=== PATIENT | female | born 2000 | race Caucasian/White ===

== ENCOUNTER 2023-08-09 07:30 | Outpatient (RCR) | payer BC, SELFPAY | END 2023-12-07 23:59 | disposition home or self-care (01) | PROVIDERS: PCP Family Medicine; Visit Provider Family Medicine Sports Medicine | DX: M51.26 Other intervertebral disc displacement, lumbar region (principal); M53.3 Sacrococcygeal disorders, not elsewhere classified; G89.29 Other chronic pain; M79.661 Pain in right lower leg; M79.662 Pain in left lower leg; R29.898 Other symptoms and signs involving the musculoskeletal system; M53.2X8 Spinal instabilities, sacral and sacrococcygeal region; M62.81 Muscle weakness (generalized); M62.89 Other specified disorders of muscle; Z51.89 Encounter for other specified aftercare | CPT/HCPCS: 97110; 97140; 97162 ==